=== PATIENT | male | born 1970 | race Caucasian/White ===

== ENCOUNTER 2024-05-04 13:31 | Emergency (ER) | payer OTHER ==
[~2024-05-04] VITALS: Ht 180.3 cm; Wt 95.5 kg
[2024-05-04 13:37] VITALS: TEMP 97.9
[2024-05-04] MEDS ORDERED: FIORICET 325 MG1 TA1 PO (14:27)
[2024-05-04 14:32] VITALS: BP 129/80; PULSE 67
== END 2024-05-04 14:32 | disposition home or self-care (01) ==
LOC: COL.ER 13:31
DX: G43.909 Migraine, unspecified, not intractable, without status migrainosus (principal)